=== PATIENT | male | born 1985 | race Caucasian/White ===

== ENCOUNTER 2024-04-26 00:37 | Emergency (ER) | payer OTHER, SELFPAY ==
[2024-04-26 00:37] VITALS: BMI 29.5
[2024-04-26 00:43] VITALS: BP 149/97
[2024-04-26 01:54] VITALS: BP 133/88
[2024-04-26 02:00] VITALS: BP 137/93
--- NOTE | 2024-04-26 02:02 | ED.GENMED ---
History of Present Illness
General
Chief Complaint: Abdominal Pain
Time Seen by Provider: 04/26/24 02:02
History of Present Illness
History of Present Illness:
TIME OF INITIAL ENCOUNTER: 2:15 AM
HPI: Patient presents with abdominal pain more so on the left side. He has not had nausea, vomiting, or diarrhea. The pain started yesterday morning and then around 2 PM, bit worse around 8 PM that was rather severe. He does not have back pain.
He has no testicular pain. He has no fevers. Overall he currently feels improved.
EXAM:
GENERAL: Well appearing in no distress
HEENT: Moist oral mucosa
CARDIOVASCULAR: No chest wall tenderness
PULMONARY: No respiratory distress
ABDOMEN: Soft with no peritoneal signs, minimal if any left lower quad tenderness, no flank tenderness
NEUROLOGIC: Excellent strength all extremities, no coordination deficits
PSYCHIATRIC: Appropriate mental status, normal insight and judgement
EXTREMITIES: Nontender, no edema, moves all extremities equally
SKIN: No rash, no lesions
NUMBER AND COMPLEXITY OF PROBLEMS ADDRESSED AT THE ENCOUNTER
� Chronic conditions affecting care: No significant past medical history
� Acute Exacerbation and/or Progression of Chronic Illness: This is an acute problem
� Differential Diagnosis includes: Oblique muscle strain, ureteral stone, diverticular disease
AMOUNT AND/OR COMPLEXITY OF DATA TO BE REVIEWED AND ANALYZED
� I performed an independent evaluation of and my interpretation is:
EKG:
CT: CT imaging shows some mild diffuse thickening of the small bowel loops with mild prominent mesenteric nodes but no dilatation, there is no bowel obstruction or diverticulitis.
X-rays:
Laboratory Studies: White count 14.0, no blood in the urine, no sign of infection in the urine
Other:
� Review of other/old records: No old records available for review in [facility]
� Clinical information was obtained by an independent historian: I spoke to the father at bedside
� Prescriptions/Medications Considered but not given: Declined any significant analgesia
� Further testing considered but not performed:
RISK OF COMPLICATIONS AND/OR MORBIDITY OR MORTALITY OF PATIENT MANAGEMENT
� Social determinants of health affecting care: Lives at home
� Discussion with other providers:
� Escalation of care including admission/observation vs risk of discharge considered: The patient appeared fairly comfortable throughout his stay in the emergency department
ANY OTHER UPDATES:
4 AM: Patient overall feels improved and much improved compared to prior. Enteritis suggested on CT. The patient does report some diarrhea recently. No clear indication for antibiotics. Overall feels improved.
Phy Exam
Physical Exam
Physical Exam:
See HPI
Course
Orders/Labs/Results
Orders:
Orders
04/26/24 01:50
IV Insert/Care/Rem.- Treatment PRN
04/26/24 01:51
Complete Blood Count/With Diff Urgent
Comprehensive Metabolic Panel Urgent
Lipase Urgent
Urinalysis Reflex To Culture Urgent
Date Specimen was Collected: 04/26/24
Time Specimen was Collected: 01:50
04/26/24 02:25
CT Abd/pelvis W Iv Cont Urgent
Comment:
Reason For Exam: L pain, WBC 14, no blood in urine
Ketorolac [Toradol] 15 mg IV NOW STA
Abnormal Lab Results
04/26/24
01:51
WBC 14.0 H 10^3/uL
(4.8-10.8)
MPV 10.5 H fL
(7.4-10.4)
Absolute Neuts (auto) 12.0 H 10^3/uL
(1.4-6.5)
Absolute Lymphs (auto) 1.1 L 10^3/uL
(1.2-3.4)
Absolute Monos (auto) 0.7 H 10^3/uL
(0.1-0.6)
Neutrophils % 85.9 H %
(42.2-75.2)
Lymphocytes % 7.7 L %
(20.5-51.1)
Glucose 134 H mg/dl
(70-99)
Urine Bilirubin 1+ A
(Negative)
04/26/24 01:51
04/26/24 01:51
Vital Signs
Initial and Last Documented VS:
Initial Vital Signs
Temp Pulse Resp BP Pulse Ox
98.8 F 70 16 149/97 100
04/26/24 00:43 04/26/24 00:43 04/26/24 00:43 04/26/24 00:43 04/26/24 00:43
Last Documented Vital Signs
Temp Pulse Resp BP Pulse Ox
98.8 F 70 16 153/95 100
04/26/24 00:43 04/26/24 00:43 04/26/24 03:21 04/26/24 03:00 04/26/24 03:15
*Critical Care Note
Total Time (30-74mins, 75-104mins- exclusive of procedures): Not Applicable
ED Attending Note
-
Portions of this chart may have been created with voice recognition software.� Occasional wrong word or��sound alike� substitutions may have occurred due to the inherent limitations of voice recognition software.
Discharge Plan
Departure
Patient Disposition: Home (Routine Discharge)
Date of Disposition: 04/26/24
Time of Disposition: 03:56
Patient with high blood pressure during this ER visit?: Yes
Discharge Problem:
Abdominal pain
Instructions: Abdominal Pain, BLOOD PRESSURE
Prescriptions:
No Action
levothyroxine 125 mcg Tablet
125 mcg PO DAILY
Referrals:
Reese Sanchez MD [Family Provider] -
Activity Restrictions/Additional Instructions:
White blood cell count is slightly high at 14.0, chemistries are normal, urinalysis shows no sign of infection. The CAT scan showed some inflammation of the small intestines with some prominent mesenteric nodes that is commonly seen with enteritis.
Typically, no antibiotics are needed for this. There is no sign for diverticulitis, colitis, appendicitis, or bowel obstruction. Follow-up with your primary care doctor. Use Tylenol/current for pain.
Interventions
Interventions:
*Risk Screen - Suicide Last Done: 04/26/24 00:43
*Neglect/Abuse Screening Last Done: 04/26/24 00:43
*ED COVID-19 Vaccine History Last Done: 04/26/24 00:43
Discharge Date and Time
Print Language: FAROESE
[2024-04-26 02:12] LABS: % Basophils 0.1 % (0-2); % Eosinophils 0.8 % (0-6); % Immature Granulocytes 0.3 % (0-0.5); % Lymphocytes 7.7 % (20.5-51.1); % Monocytes 5.2 % (1.7-9.3); % Neutrophils 85.9 % (42.2-75.2); Absolute Eosinophils 0.1 10^3/uL (0-0.7); Absolute Lymphocytes 1.1 10^3/uL (1.2-3.4); Absolute Monocytes 0.7 10^3/uL (0.1-0.6); Hematocrit 45.5 % (39.0-52.0); Hemoglobin 16.5 g/dL (13.0-18.0); Mean Corp Hgb Conc. 36.3 g/dL (33.0-37.0); Mean Corpuscular Hgb 29.9 pg (27.0-31.0); Mean Corpuscular Volume 82.4 fL (80.0-94.0); Mean Platelet Volume 10.5 fL (7.4-10.4); Nucleated Red Blood Cells % 0 % (-); Platelet Count 230 10^3/uL (130-400); Red Blood Cell Count 5.52 10^6/uL (4.70-6.10); Red Cell Dist. Width 12.6 % (11.5-14.5)
[2024-04-26 02:13] LABS: Urine Albumin Negative (Neg - Trace); Urine Bilirubin 1+ (Negative); Urine Character Clear (Clear); Urine Color Yellow; Urine Glucose Negative (Negative); Urine Ketone Negative (Negative); Urine Leukocyte Negative (Negative); Urine Nitrite Negative (Negative); Urine Occult Blood Negative (Negative); Urine Specific Gravity 1.025 (<1.030); Urine Urobilinogen Negative (Neg - 1+)
[2024-04-26 02:27] LABS: ALT (SGPT) 19 U/L (0-50); AST (SGOT) 22 U/L (17-59); Albumin 4.6 g/dl (3.5-5.0); Alkaline Phosphatase 59 U/L (38-126); Blood Urea Nitrogen 14 mg/dl (9-20); Calcium 9.5 mg/dl (8.4-10.2); Carbon Dioxide 26 mmol/L (22-30); Chloride 107 mmol/L (98-107); Estimated Creatinine Clearance 95 ml/min; Glucose 134 mg/dl (70-99); Lipase 64 U/L (23-300); Sodium 144 mmol/L (135-145); Total Protein 6.9 g/dl (6.3-8.2); eGFR > 60.00
[2024-04-26] MEDS: TORADOL 15 MG IV (02:52)
[2024-04-26 02:54] VITALS: BP 149/91
[2024-04-26 03:00] VITALS: BP 153/95
[2024-04-26 04:27] VITALS: BP 133/84
== END 2024-04-26 04:51 | disposition home or self-care (01) ==
LOC: EMR 00:37
PROVIDERS: EMERGENCY PHYSICIAN Emergency Medicine; FAMILY PHYSICIAN Family Medicine
DX: R10.9 Unspecified abdominal pain (principal); R03.0 Elevated blood-pressure reading, without diagnosis of hypertension
CPT/HCPCS: 99285; 96374; 74177; 80053; 81003; 83690; 85025; Q9967